=== PATIENT | male | born 1960 | race Caucasian/White ===

== ENCOUNTER → 2017-03-09 | Outpatient (CLI) | payer OTHER | LOC: FIMAGING 12:18 | PROVIDERS: ATTEND Family Medicine Sports Medicine | DX: M51.36 Other intervertebral disc degeneration, lumbar region (principal); M50.30 Other cervical disc degeneration, unspecified cervical region ==

== ENCOUNTER 2018-04-16 16:33 | Emergency (ER) | payer OTHER ==
[2018-04-16] MEDS ORDERED: NS 1,000 ML IV ONE (16:57)
--- NOTE | 2018-04-16 17:21 | EDPHY ---
H & P Time Seen by Provider: 04/16/18 16:40 HPI/ROS: HPI Ongoing fever. 58-year-old male by private vehicle. 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 Currently not on chemotherapy. He is not immunocompromised. He reports he has had ongoing fevers, low grade, for the last 4-5 months. He reports temperature up to 99 degrees F. He reports that he has been taking 2400 mg of ibuprofen daily for this with good control of his fever. He reports that today he developed a fever again up to 99 degrees. He took a total of 1600 mg of ibuprofen. He states that the fever persisted at 99.8 degrees. He also felt fatigued. This is what prompted him to come to the emergency department. Otherwise he denies any other symptoms. His general surgeon is Dr. Evans Dale. His oncologist is Dr. Mejía. He tells me they have been aware of these feet low-grade fevers as well. ROS: Constitutional: As above. Eyes: No discharge. No changes in vision. ENT: No sore throat. No nasal congestion or rhinorrhea. Respiratory: No cough. No shortness of breath. Cardiac: No chest pain, no palpitations. Gastrointestinal: No abdominal pain, no vomiting, no diarrhea. Genitourinary: No hematuria. No dysuria or increased frequency with urination. Musculoskeletal: No back pain. No neck pain. No myalgias or arthralgias. Skin: No rashes. Neurological: No headache. No focal weakness or altered sensation. Past medical history: Cholangiocarcinoma with metastasis. As above. Social history: Nonsmoker. Here by himself. No alcohol. Physical Exam: General Appearance: Alert, no distress. This patient is responding to questions appropriately and in full sentences. This patient appears well- hydrated and well-nourished. Eyes: Pupils equal and round no pallor or injection. No lid edema, erythema or injection. ENT, Mouth: Mucous membranes are moist. The pharyngeal tissues are unremarkable. No edema or swelling. No asymmetry suggestive of abscess. No erythema or exudates. Respiratory: There are no retractions, lungs are clear to auscultation with good air movement bilaterally. Cardiovascular: Regular rate and rhythm. No murmur. Gastrointestinal: Abdomen is soft and nontender, no masses, bowel sounds normal. No focal tenderness at McBurney's point. No Cherry sign. Neurological: Motor sensory function is grossly intact. Cranial nerves are normal. Gait is normal. Skin: Warm and dry, no rashes. Musculoskeletal: Neck is supple and nontender. Extremities are symmetrical. All joints range without pain or impingement. Psychiatric: No agitation. No depression. Database: EKG: EKG time is 4:57 p.m.; EKG shows a narrow complex normal sinus rhythm with a ventricular rate of 78. The MS, QRS, QT intervals are within normal limits. There are no ST-T wave changes indicative of ischemic or injury pattern. No evidence of right heart strain. Interpreted by me. Imaging: Chest x-ray PA and lateral; the cardiac mediastinal silhouette is unremarkable. Vague nodular pulmonary densities consistent with recent CT and metastasis. No evidence of infiltrate or pneumothorax. No acute cardiopulmonary disease process noted. Interpreted by me. Procedures: Emergency department course: Vital signs reviewed and are normal. His temperature is 36.6 degrees here. An IV was placed. He will be started on IV normal saline with 500 cc to 1 L to be given over the next 1-2 hours. Will obtain a fever workup including chest x-ray , urinalysis and blood cultures. 6:30 p.m., patient re-evaluated. Results of emergency department workup discussed with him. Blood culture results currently pending. Vital signs reviewed and are normal. He is not neutropenic. He has remained afebrile throughout his emergency department course. After discussion of his emergency department workup I discussed antibiotics. I feel at this time that antibiotics are not indicated. Plan will be to have him follow up with Dr. Mejía or his primary care physician on Thursday for re-evaluation and results of his blood cultures. He was given strict instructions to return to the emergency department over the weekend for any worsening of condition or other concerns. He feels comfortable with this plan. All of his questions were answered. He was discharged from the emergency department in good condition. Differential Diagnosis: The differential diagnosis on this patient includes but is not limited to viral syndrome, chronic inflammatory state with associated low-grade fever, bacteremia. No pneumonia, urinary tract infection, sepsis, cellulitis, septic joint, pharyngitis unlikely. This represents a partial list of diagnoses considered. These considerations are based on history, physical exam, past history, reassessment and diagnostic testing. Smoking Status: Never smoked Constitutional: Initial Vital Signs Temperature (C) 36.6 C 04/16/18 16:36 Heart Rate 86 04/16/18 16:36 Respiratory Rate 16 04/16/18 16:36 Blood Pressure 126/82 H 04/16/18 16:36 O2 Sat (%) 95 04/16/18 16:36 O2 Delivery Mode Room Air Allergies/Adverse Reactions: No Known Allergies Allergy (Verified 04/16/18 16:34) Home Medications: Medication Instructions Recorded Ibuprofen 04/07/18 Medical Decision Making - Data Points Laboratory Results: Laboratory Results 04/16/18 16:57 04/16/18 16:57 Microbiology Results: MICROBIOLOGY 04/16/18 17:20 Blood Blood Culture - Preliminary 04/16/18 16:57 Blood Blood Culture - Preliminary Medications Given: Discontinued Medications Sodium Chloride (Ns) 1,000 mls @ 0 mls/hr IV ONCE ONE; Wide Open PRN Reason: Protocol Stop: 04/16/18 16:58 Last Admin: 04/16/18 17:11 Dose: 1,000 mls Departure - Departure Disposition: Home, Routine, Self-Care Clinical Impression: Fever, History of cholangiocarcinoma Condition: Good Instructions: Fever in Adults (ED) Additional Instructions: Read and follow provided instructions. Follow-up with your primary care physician or Dr. Mejía on Thursday for re- evaluation as discussed. Her blood culture results should be available by this time. Take ibuprofen for fever as reviewed only as needed. Return to the emergency department for worsening symptoms, high fever, fatigue, headache, vomiting, cough or other serious concerns. Referrals: Clarke Du MD [Primary Care Provider] - As per Instructions Jesse Mejía MD [Medical Doctor] - As per Instructions
[2018-04-16 17:24] LABS: PLATELET COUNT 319 10^3/uL (150-400)
[2018-04-16 19:04] VITALS: BP 129/71
--- NOTE | 2018-04-16 22:58 | CPEKG ---
Test Reason : OPEN Blood Pressure : / mmHG Vent. Rate : 078 BPM Atrial Rate : 078 BPM P-R Int : 165 ms QRS Dur : 088 ms QT Int : 373 ms P-R-T Axes : 040 -22 034 degrees QTc Int : 425 ms Sinus rhythm Borderline left axis deviation Confirmed by Kelly Joseph ([id number]) on 04/16/2018 10:58:16 PM Referred By: Confirmed By:Kelly Joseph
== END 2018-04-16 19:03 | disposition home or self-care (01) ==
DX: R50.9 Fever, unspecified (principal); E86.9 Volume depletion, unspecified; Z85.09 Personal history of malignant neoplasm of other digestive organs

== ENCOUNTER 2018-04-29 19:45 | Inpatient (IN) | payer OTHER ==
[2018-04-29 20:38] LABS: PLATELET COUNT 240 10^3/uL (150-400)
[2018-04-29] MEDS ORDERED: NS 1,000 ML IV ONE ×3 (20:38→22:26)
--- NOTE | 2018-04-29 20:38 | EDPHY ---
H & P Stated Complaint: CHLOANGIOCARCINOMA, abd distention, "dehydrated" Time Seen by Provider: 04/29/18 20:11 - Personal History Current Tetanus/Diphtheria Vaccine: Yes Current Tetanus Diphtheria and Acellular Pertussis (TDAP): Yes - Medical/Surgical History Hx Asthma: No Hx Chronic Respiratory Disease: No Hx Diabetes: No Hx Cardiac Disease: No Hx Renal Disease: No Hx Cirrhosis: No Hx Alcoholism: No Hx HIV/AIDS: No Hx Splenectomy or Spleen Trauma: No Other PMH: LIVER BIOPSY 2018, STAGE 4 PANCREATIC CA, METS TO LIVER, LUNGS, LYMPHNODES- CHOLANGIOCARCINOMA - Social History Smoking Status: Never smoked Constitutional: Initial Vital Signs Temperature (C) 36.6 C 04/29/18 19:50 Heart Rate 76 04/29/18 19:50 Respiratory Rate 18 04/29/18 19:50 Blood Pressure 124/82 H 04/29/18 19:50 O2 Sat (%) 96 04/29/18 19:50 O2 Delivery Mode Room Air Allergies/Adverse Reactions: No Known Allergies Allergy (Verified 04/29/18 19:52) Home Medications: Medication Instructions Recorded Ibuprofen [Motrin (*)] 400 mg PO Q8H PRN 04/07/18 Medical Decision Making - Diagnostics Imaging: Discussed imaging studies w/ banquet server on call Radiologist ED Course/Re-evaluation: CHIEF COMPLAINT: Fever, dehydration. HISTORY OF PRESENT ILLNESS: This patient is a 58 year-old male with recent diagnosis of cholangiocarcinoma carcinoma. He was diagnosed in the past month and is followed by oncology here in [place] (Dr. Mejía) and in [place] at the [facility]. He has metastases to his lungs and lymph nodes. Today, he had a fever of 101 degrees. He complains of abdominal bloating. He has been unable to eat or drink including being unable to keep down any water. He noted his eyes appear jaundiced. Additionally, the color and consistency of his stools has changed and they have been soft and yellowish for several days. No chest pain, shortness of breath, numbness or paresthesias in his extremities, or other associated symptoms. REVIEW OF SYSTEMS: A comprehensive 10 system review of systems is otherwise negative aside from elements mentioned in the history of present illness and medical decision making. PHYSICAL EXAM: HR, BP, O2 Sat, RR. Temp noted General Appearance: Alert, well hydrated, appropriate, and non-toxic appearing. Head: Atraumatic without scalp tenderness or obvious injury Eyes: Scleral icterus. Pupils equal, round, reactive to light and accommodation , EOMI, no trauma, no injection. Ears: Clear bilaterally, no perforation, normal landmarks Nose: Atraumatic, no rhinorrhea, clear. Throat: There is no erythema or exudates, no lesions, normal tonsils, mucus membranes moist. Neck: Supple, 2+ carotid upstroke, nontender, no lymphadenopathy. Respiratory: No retractions, no distress, no wheezes, and no accessory muscle use. Lungs are clear to auscultation bilaterally. Cardiovascular: Regular rate and rhythm, no murmurs, rubs, or gallops. Bilateral carotid, radial, dorsalis pedis, and posterior tibial pulses intact. Good capillary refill all extremities. Gastrointestinal: Abdomen is distended. Soft, nontender, no masses, no rebound , no guarding, no peritoneal signs. Musculoskeletal: Normal active ROM of all extremities, atraumatic. Neurological: Alert, appropriate, and interactive. The patient has normal DTRs and non-focal cranial nerves, motor, sensory, and cerebellar exam. Skin: Jaundiced. No rashes, good turgor, no nodules on palpation. Past medical history: Stage IV pancreatic cancer with metastases to liver, lungs , lymph nodes. Past surgical history: Liver biopsy 2018. Family history: Noncontributory. Social history: Friend at bedside. Oncologist: Dr. Mejía. DIAGNOSTICS/PROCEDURES/CRITICAL CARE TIME: I spent a total of 30 minutes of critical care time including but not limited to obtaining history, performing a physical exam, ordering interventions and the bedside monitoring of those interventions, collecting and interpreting tests and discussion with consultants but not including time spent performing procedures. DIFFERENTIAL DIAGNOSIS: The differential diagnosis for the patient's fever included but was not limited to pneumonia, urinary tract infection, viral syndrome, meningitis, and sepsis. MEDICAL DECISION MAKIN58 y/o male with recent diagnosis of cholangiocarcinoma presents with fever, vomiting, abdominal distention, and stool changes. On exam, he appears jaundiced and has scleral icterus, abdomen is distended but nontender. Plan to administer 2L IV NS. Patient declines pain medication at this time. Reviewed laboratory studies. Alk phos elevated at 600. AST/ALT elevated. Suspect biliary obstruction, as with patient's clinical presentation. CT pending. UA positive for urobilinogen. WBC elevated at 10,000. 21:45 Spoke with hospitalist service. Plan to admit for worsening symptoms surrounding the patient's metastatic cholangiocarcinoma likely related to biliary obstruction. 21:[address] Mansfield, healthcare prof. banquet server on call healthcare prof to consult tomorrow morning. 21:[address] He, radiologist. CT shows evidence of biliary obstruction, worsening metastases, consistent with patient's clinical presentation. 22:[address] Reyes, oncologist. The patient is under the care of Dr. Mejía, oncologist. They are aware of the patient's admission and will consult as needed. 22:[address] Castillo, hospitalist. Plan to administer 3.375gm IV Zosyn. He will be admitted as above. An additional 1L IV NS was administered for dehydration relief. - Data Points Laboratory Results: Laboratory Results 04/29/18 20:30 04/29/18 20:30 Medications Given: Acetaminophen (Tylenol) 650 mg PO Q4HRS PRN PRN Reason: Pain, Mild/Fever, Can Take PO Stop: 10/26/18 22:25 Last Admin: 04/30/18 13:12 Dose: 650 mg Piperacillin/Tazobactam/Dextrose (Zosyn 3.375 Gm (Premix)) 50 mls @ 100 mls/hr IV Q6HRS FLAKO PRN Reason: Protocol Stop: 05/30/18 13:21 Last Admin: 04/30/18 14:05 Dose: 50 mls Discontinued Medications Sodium Chloride (Ns) 1,000 mls @ 0 mls/hr IV EDNOW ONE; Wide Open PRN Reason: Protocol Stop: 04/29/18 20:39 Last Admin: 04/29/18 20:39 Dose: 1,000 mls Sodium Chloride (Ns) 1,000 mls @ 0 mls/hr IV EDNOW ONE; Wide Open PRN Reason: Protocol Stop: 04/29/18 20:39 Last Admin: 04/29/18 20:40 Dose: 1,000 mls Sodium Chloride (Ns) 1,000 mls @ 0 mls/hr IV ONCE ONE PRN Reason: Wide Open Stop: 04/29/18 22:27 Last Admin: 04/29/18 22:52 Dose: 1,000 mls Piperacillin/Tazobactam/Dextrose (Zosyn 3.375 Gm (Premix)) 50 mls @ 100 mls/hr IV EDNOW ONE PRN Reason: Protocol Stop: 04/29/18 23:17 Last Admin: 04/29/18 23:26 Dose: 50 mls Departure - Departure Disposition: [facility] Inpatient Acute Clinical Impression: Cholangiocarcinoma, Common bile duct obstruction Condition: Serious Report Scribed for: Mihir Montez Report Scribed by: Lea Madrid Date of Report: 04/29/18 Time of Report: 23:26
[2018-04-29] MEDS ORDERED: IOPAMIDOL (ISOVUE-300) 100 ML BTL ONE (20:52)
[2018-04-29 20:57] LABS: INR 0.94 (0.83-1.16); PROTIME(PATIENT) 12.8 SEC (12.0-15.0)
[2018-04-29] MEDS ORDERED: ONDANSETRON DISINTEGRATING 4 MG TAB PO PRN (22:26)
[2018-04-29] MEDS ORDERED: PIPERACILLIN/TAZO 3.375 GM/DEX 50 ML IV ONE (22:48)
--- NOTE | 2018-04-29 23:43 | PDGENHP ---
History and Physical - Chief Complaint Abdominal pain - History of Present Illness 58 yo M w/ hx of metastatic cholangiocarcinoma presents with abdominal pain, jaundice, and fever. Patient was in usual state of health until today when he developed severe abdominal pain. His neighbor noticed his skin appeared yellowed and he also noted yellow stools. He noted a T of 101 at home. However, he tells me this is not new and he has been having fevers for 6 months. Per his report these have been attributed to his malignancy. He was diagnosed with malignancy in early March. Aside from this he denies other medical problems. Case discussed with ED physician Dr. Montez. Records reviewed in EMR. History Information - Allergies/Home Medication List Allergies/Adverse Reactions: No Known Allergies Allergy (Verified 04/29/18 19:52) Home Medications: Ibuprofen [Motrin (*)] 400 mg PO Q8H PRN 04/07/18 [Last Taken Unknown] I have personally reviewed and updated: family history, medical history - Past Medical History cancer (Metastatic cholangiocarcinoma) - Surgical History Reports: appendectomy Additional surgical history: Liver biopsy - Family History Positive for: cancer (Prostate CA) - Social History Smoking Status: Never smoked Review of Systems Review of Systems: ROS: 10pt was reviewed & negative except for what was stated in HPI & below Physical Exam Physical Exam: Temp Pulse Resp BP Pulse Ox 36.9 C 65 16 107/62 96 04/29/18 23:25 04/29/18 23:25 04/29/18 23:25 04/29/18 23:25 04/29/18 23:25 Constitutional: no apparent distress, appears nourished Eyes: PERRL, icteric sclera Ears, Nose, Mouth, Throat: moist mucous membranes, no oral mucosal ulcers Cardiovascular: regular rate and rhythym, no murmur, rub, or gallop Respiratory: no respiratory distress, clear to auscultation Gastrointestinal: normoactive bowel sounds, tenderness (RUQ), No guarding, No rebound, No distension Skin: warm, other (Jaundiced) Musculoskeletal: full muscle strength, no muscle tenderness Neurologic: AAOx3, CN II-XII Intact Psychiatric: interacting appropriately, not anxious Lab Data & Imaging Review 04/29/18 20:30 04/29/18 20:30 WBC 10.27 10^3/uL (3.80-9.50) H 04/29/18 20:30 RBC 4.23 10^6/uL (4.40-6.38) L 04/29/18 20:30 Hgb 12.7 g/dL (13.7-17.5) L 04/29/18 20:30 Hct 37.4 % (40.0-51.0) L 04/29/18 20:30 MCV 88.4 fL (81.5-99.8) 04/29/18 20:30 MCH 30.0 pg (27.9-34.1) 04/29/18 20: MCHC 34.0 g/dL (32.4-36.7) 04/29/18 20:30 RDW 15.1 % (11.5-15.2) 04/29/18 20:30 Plt Count 240 10^3/uL (150-400) 04/29/18 20:30 MPV 11.2 fL (8.7-11.7) 04/29/18 20:30 Neut % (Auto) 77.0 % (39.3-74.2) H 04/29/18 20:30 Lymph % (Auto) 9.3 % (15.0-45.0) L 04/29/18 20:30 Morrill % (Auto) 12.3 % (4.5-13.0) 04/29/18 20:30 Eos % (Auto) 0.6 % (0.6-7.6) 04/29/18 20:30 Baso % (Auto) 0.4 % (0.3-1.7) 04/29/18 20:30 Nucleat RBC Rel Count 0.0 % (0.0-0.2) 04/29/18 20:30 Absolute Neuts (auto) 7.92 10^3/uL (1.70-6.50) H 04/29/18 20:30 Absolute Lymphs (auto) 0.95 10^3/uL (1.00-3.00) L 04/29/18 20:30 Absolute Monos (auto) 1.26 10^3/uL (0.30-0.80) H 04/29/18 20:30 Absolute Eos (auto) 0.06 10^3/uL (0.03-0.40) 04/29/18 20:30 Absolute Basos (auto) 0.04 10^3/uL (0.02-0.10) 04/29/18 20:30 Absolute Nucleated RBC 0.00 10^3/uL (0-0.01) 04/29/18 20:30 Immature Gran % 0.4 % (0.0-1.1) 04/29/18 20:30 Immature Gran # 0.04 10^3/uL (0.00-0.10) 04/29/18 20:30 PT 12.8 SEC (12.0-15.0) 04/29/18 20:30 INR 0.94 (0.83-1.16) 04/29/18 20:30 APTT 28.1 SEC (23.0-38.0) 04/29/18 20:30 VBG Lactic Acid 0.7 mmol/L (0.7-2.1) 04/29/18 21:34 Sodium 136 mEq/L (135-145) 04/29/18 20:30 Potassium 3.8 mEq/L (3.3-5.0) 04/29/18 20:30 Chloride 103 mEq/L (97-110) 04/29/18 20:30 Carbon Dioxide 23 mEq/l (22-31) 04/29/18 20:30 Anion Gap 10 mEq/L (8-16) 04/29/18 20:30 BUN 9 mg/dL (7-23) 04/29/18 20:30 Creatinine 0.6 mg/dL (0.7-1.3) L 04/29/18 20:30 Estimated GFR > 60 04/29/18 20:30 Glucose 99 mg/dL (70-100) 04/29/18 20:30 Calcium 8.4 mg/dL (8.5-10.4) L 04/29/18 20:30 Total Bilirubin 4.2 mg/dL (0.1-1.4) H 04/29/18 20:30 Conjugated Bilirubin 3.2 mg/dL (0.0-0.5) H 04/29/18 20:30 Unconjugated Bilirubin 1.0 mg/dL (0.0-1.1) 04/29/18 20:30 AST 85 IU/L (17-59) H 04/29/18 20:30 ALT 150 IU/L (21-72) H 04/29/18 20:30 Alkaline Phosphatase 599 IU/L (38-126) H 04/29/18 20:30 Total Protein 6.3 g/dL (6.3-8.2) 04/29/18 20:30 Albumin 3.2 g/dL (3.5-5.0) L 04/29/18 20:30 Lipase 226 IU/L (23-300) 04/29/18 20:30 Urine Color JAYNE 04/29/18 22:12 Urine Appearance CLEAR 04/29/18 22:12 Urine pH 6.0 (5.0-7.5) 04/29/18 22:12 Ur Specific Ralston 1.025 (1.002-1.030) 04/29/18 22:12 Urine Protein NEGATIVE (NEGATIVE) 04/29/18 22:12 Urine Ketones NEGATIVE (NEGATIVE) 04/29/18 22:12 Urine Blood NEGATIVE (NEGATIVE) 04/29/18 22:12 Urine Nitrate NEGATIVE (NEGATIVE) 04/29/18 22:12 Urine Bilirubin NEGATIVE (NEGATIVE) 04/29/18 22:12 Urine Urobilinogen 2.0 EU (0.2-1.0) H 04/29/18 22:12 Ur Leukocyte Esterase NEGATIVE (NEGATIVE) 04/29/18 22:12 Urine RBC 1-3 /hpf (0-3) 04/29/18 22:12 Urine WBC 10-15 /hpf (0-3) H 04/29/18 22:12 Ur Epithelial Cells NONE SEEN /lpf (NONE-1+) 04/29/18 22:12 Urine Glucose NEGATIVE (NEGATIVE) 04/29/18 22:12 Imaging Review: Imaging Impressions Abdomen CT 04/29/18 20:32 Impression: 1. Slight interval worsening of hepatic metastases, with increased now moderate to severe left intrahepatic biliary dilatation. 2. Increased size of multiple pulmonary metastases. 3. Grossly stable pancreatic head mass. 4. Grossly stable eric metastases. 5. Additional findings as above. Findings discussed with Mihir Montez M.D., on April 29, 2018 at 2149. E:amm Assessment & Plan Assessment: 58 yo M w/ metastatic cholangiocarcinoma presents with bile duct obstruction 2/ 2 malignancy. Plan: 1. Acute biliary obstruction - 2/2 progression of malignancy; CT reveals slight interval worsening of hepatic metastases, with increased now moderate to severe left intrahepatic biliary dilatation. Tbili 4.2. Despite history of fevers, I doubt ongoing cholangitis noting overall clinical stability and the fact that fevers have been occurring for the last 6 months. - S/p Zosyn x1, hold further antibiotics for now, low threshold to restart - GI consulted, NPO @ [facility] for likely stent placement - Monitor CMP 2. Metastatic cholangiocarcinoma - With evidence of disease in liver, pancreas, lymph nodes, and lungs. Followed by Dr. Sanchez. Diet - NPO Code - Full Ppx - SCDs Dispo - Admit under observation status
[2018-04-30 06:09] LABS: PLATELET COUNT 175 10^3/uL (150-400)
--- NOTE | 2018-04-30 11:26 | GCON ---
DATE OF CONSULTATION: 04/30/2018 CHIEF COMPLAINT: Abdominal pain. HISTORY OF PRESENT ILLNESS: I am asked to see this patient in consultation by Dr. Frank for a [facility] complaint of abdominal pain. Patient is an unfortunate, 58 year old with recent diagnosis of meta static cholangiocarcinoma, originally diagnosed in March with liver biopsy, who developed worsening abdominal pain last night associated with a fever. He has been noting intermittent abdominal pain th at he feels more as a bloated discomfort when he eats, but became more acute last night. He has had no nausea, no vomiting. Denies diarrhea, constipation, or blood in stools, but for the last 2 days, has noted that his stools have turned verduzco, and has noted more jaundice to his eyes, and did develop a fever as well last night. This morning, however, his pain is much better. He has had history of a burst appendix, but no surgery on his abdomen. He has no GERD or dysphagia. ALLERGIES: No known allergies. MEDICATIONS ON ADMISSION: Ibuprofen and Zofran. PAST MEDICAL HISTORY: Noted for new diagnosis of metastatic cholangiocarcinoma. SOCIAL HISTORY: Denies alcohol use. Never smoked. FAMILY HISTORY: Positive for prostate cancer. REVIEW OF SYSTEMS: I performed a complete review of systems which is negative except for the pertine nt positives and negatives noted above in the HPI. PHYSICAL EXAM: VITAL SIGNS: Temp now is 36.8, BP 101/66, pulse 69. CONSTITUTIONAL: Patient is giorgio rt and oriented. EYES: Scleral icterus. HEENT: No oral lesions. CARDIOVASCULAR: Regular rhythm. CHEST: Clear to auscultation. ABDOMEN: Soft, nontender. No hepatosplenomegaly. NEUROLOGICAL: Nonfocal. SKIN: No lesions. LABORATORY DATA: Shows alkaline phosphatase of 473, total bilirubin of 5.0, AST 66, ALT 117. White count 7, hematocrit 34.1, platelets 178. Coag is 12.8 with an INR 0.94. A CT scan of the abdomen shows a slight increase in and worsening hepatic metastasis with now moderate to severe left intrahepatic biliary dilation. Increase in pulmonary metastasis. Stable pancreatic head mass. ASSESSMENT: Patient with metastatic cholangiocarcinoma now with evidence of biliary obstruction, and given fever and pain, concern for cholangitis, however, patient's white count is not elevated, and h is fever is now in improved. However, the patient will need biliary decompression, and have discusse d this with the therapeutic endoscopist. PLAN: We will plan for ERCP with biliary stent today. Recommend to keep n.p.o. and IV antibiotics. Thank you for this consult. /[id number]/MODL
[2018-04-30] MEDS: ACETAMINOPHEN 325 MG TAB PO PRN ×3 (13:12→22:05)
--- NOTE | 2018-04-30 13:22 | HOSPPROG ---
Hospitalist Progress Note Assessment/Plan: 58 yo M w/ metastatic cholangiocarcinoma presents with bile duct obstruction 2/ 2 malignancy. Plan: 1. Acute biliary obstruction - 2/2 progression of malignancy; CT reveals slight interval worsening of hepatic metastases, with increased now moderate to severe left intrahepatic biliary dilatation. Tbili 4.2. Despite history of fevers, I doubt ongoing cholangitis noting overall clinical stability and the fact that fevers have been occurring for the last 6 months. - S/p Zosyn x1, will continue for now - GI consulted, plan for ERCP today with stent placement - Monitor CMP 2. Metastatic cholangiocarcinoma - With evidence of disease in liver, pancreas, lymph nodes, and lungs. Followed by Dr. Sanchez. Diet - NPO Code - Full Ppx - SCDs Dispo - Pending clinical course Subjective: Patient reports no pain this morning. Objective: Vital Signs Temp Pulse Resp BP Pulse Ox 36.7 C 81 18 102/69 94 04/30/18 07:25 04/30/18 07:25 04/30/18 07:25 04/30/18 07:25 04/30/18 07:25 Laboratory Results 04/30/18 05:26 04/30/18 05:26 04/29/18 04/30/18 05/01/18 05:59 05:59 05:59 Intake Total 2300 Output Total 1200 Balance 1100 PT 12.8 SEC (12.0-15.0) 04/29/18 20:30 INR 0.94 (0.83-1.16) 04/29/18 20:30 - Physical Exam Constitutional: no apparent distress Eyes: PERRL Ears, Nose, Mouth, Throat: moist mucous membranes Cardiovascular: regular rate and rhythym Respiratory: no respiratory distress Gastrointestinal: soft, non-tender abdomen Skin: no rashes or abrasions Musculoskeletal: full muscle strength Neurologic: AAOx3 Psychiatric: interacting appropriately ICD10 Worksheet Patient Problems: Problems Problem Status Onset Cholangiocarcinoma Acute Common bile duct obstruction Acute
[2018-04-30] MEDS: PIPERACILLIN/TAZO 3.375 GM/DEX 50 ML IV SCH ×2 (14:05→17:43)
[2018-04-30] MEDS: NS 1,000 ML IV SCH ×2 (15:00→19:20)
--- NOTE | 2018-04-30 17:08 | ASMTCMCOM ---
CM Note CM Note Notes: Pt admitted with cholangiocarcinoma. Pt to get stent placed tomorrow. Pt has already decided to not pursue treatment. Had long discussion with pt about this and he is clear and at peace with this decision. Spoke with pt about having palliative care at [place]. Pt agreed. Referral sent to [facility]. Plan: Palliative care with [facility] at [place]. Date Signed: 04/30/2018 04:49 PM Electronically Signed By:Joanna Camacho LCSW
--- NOTE | 2018-04-30 17:35 | PDMN ---
Medical Necessity Medical necessity: Pt meets inpt criteria per MD order and MCG M-555, Gallbladder or Bile Duct Inflammation or Stone, A-2 days. Est LOS>2MN for management of common biliary duct obstruction in pt w/metastatic cholangiocarcinoma requiring intervention of ERCP w/biliary stent. Ongoing med nec inpt monitoring/treatment for above condition.
--- NOTE | 2018-04-30 19:24 | GCON ---
ONCOLOGY CONSULTATION REASON FOR CONSULTATION: Cholangiocarcinoma, hyperbilirubinemia. HPI: The patient is a very pleasant, 58-year-old gentleman previously in excellent health. He was di agnosed in March with cholangiocarcinoma in the setting of low-grade fever for about 5 months. Event ually, abnormal liver function tests were noted, and an abdominal ultrasound demonstrated a pancreati c mass in the pancreatic head and likely hepatic metastases. CT scan (04/01/2018) demonstrated a 6.2 x 3.8 cm tumor at the head of the pancreas abutting the main portal vein and a 2.4 cm lymph node in t he shilpa hepatis. An 11 cm mass was present in the right lobe of the liver with multiple additional h epatic metastases. Liver biopsy (04/08/2018) demonstrated metastatic poorly-differentiated carcinoma (pankeratin CK7 positive with some SRIKANTH and p53 positivity) felt compatible with pancreatic primary. Dario mcgovern had a consultation with Dr. Salguero at the [facility], and the opinion was this represented cho langiocarcinoma radiographically. In consultation with Dr. Mejía, recommended gemcitabine/cisplatin . Usama has discussed that on at least [address] Mejía, but ultimately states today that he has decided to pursue no chemotherapy. He feels very comfortable with that. He presented yesterday with higher fever than typical for him, 101. He had no associated chills. He d id have associated abdominal pain, however. His abdominal pain has improved since then, but recurs wi th eating. He has also noticed increased scleral icterus. LABORATORY STUDIES: Last night on admission were remarkable for total bilirubin 4.2 (0.6 04/16/2018) , direct 3.2, AST 85, ALT 150, alkaline phosphatase 599 (ranging from 369-480 over the last month). A bdominal CT on admission demonstrated moderate to severe left intrahepatic biliary dilation with slig ht interval worsening of hepatic metastases and multiple pulmonary metastases in comparison with 03/24. GI has been consulted regarding biliary decompression. PAST MEDICAL HISTORY: Essentially unremarkable. SOCIAL HISTORY: He is . 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 He is single. His son is a freshman at . FAMILY HISTORY: He has a 21-year-old daughter and 18-year-old son. Family history of prostate cancer . REVIEW OF SYSTEMS: CONSTITUTIONAL: Per HPI. GI: Per HPI. RESPIRATORY: No dyspnea, pleurisy, cough. M USCULOSKELETAL: No new bony complaints. : No dysuria, hematuria. NEUROLOGIC: No new symptoms. PSYCH IATRIC: He denies anxiety or depression. PHYSICAL EXAM: VITAL SIGNS: Blood pressure 102/69, pulse 81, respirations 18, 94% on room air, afebr ile including on admission. GENERAL: Very pleasant gentleman in no acute distress. HEENT: Scleral ict erus. LUNGS: Clear to auscultation bilaterally. CARDIOVASCULAR: No pretibial edema. ABDOMEN: Slightly distended, soft, and nontender. MUSCULOSKELETAL: No tenderness over the spine. NEUROLOGIC: Grossly n onfocal. LABORATORY DATA: On admission, WBC 10.3 (77% neutrophils), hemoglobin 12.7, platelets 240,000. Creat inine 0.6. LFTs per HPI. RADIOLOGIC STUDIES: CT per HPI. IMPRESSION: 1. Metastatic cholangiocarcinoma with hepatic and pulmonary metastases. 2. Biliary obstruction. PLAN: GI has been consulted regarding endoscopic biliary decompression. If a distal obstruction is n ot found, he may need percutaneous drainage. He feels most comfortable with not pursuing chemotherapy given the prognosis with and without chemotherapy and its toxicities. He plans to see Dr. Mejía ne xt week to discuss this. In the meantime, he is comfortable with proceeding with present therapy. /[id number]/MODL
[2018-05-01] MEDS: PIPERACILLIN/TAZO 3.375 GM/DEX 50 ML IV SCH ×4 (00:50→18:30)
[2018-05-01] MEDS: NS 1,000 ML IV SCH (01:56)
[2018-05-01] MEDS: ACETAMINOPHEN 325 MG TAB PO PRN ×2 (03:16→20:47)
[2018-05-01] MEDS ORDERED: GLUCAGON HCL 1 MG VIAL ONE (09:18)
[2018-05-01] MEDS ORDERED: IOTHALAMATE MEG (CONRAY) 50 ML VIAL IV ONE (09:19)
[2018-05-01] MEDS ORDERED: LR 1,000 ML IV ONE (09:52)
[2018-05-01] MEDS ORDERED: MIDAZOLAM 2 MG/2 ML VIAL IVP ONE (09:53)
--- NOTE | 2018-05-01 09:53 | PDANEPAE ---
ANE History of Present Illness ERCP for metastatic cholangiocarcinoma with biliary obstruction ANE Past Medical History - Cardiovascular History Hx Hypertension: No Hx Arrhythmias: No Hx Chest Pain: No Hx Coronary Artery / Peripheral Vascular Disease: No Hx CHF / Valvular Disease: No Hx Palpitations: No - Pulmonary History Hx COPD: No Hx Asthma/Reactive Airway Disease: No Hx Recent Upper Respiratory Infection: No Hx Oxygen in Use at Home: No Hx Sleep Apnea: No - Neurologic History Hx Cerebrovascular Accident: No Hx Seizures: No Hx Dementia: No - Endocrine History Hx Diabetes: No - Renal History Hx Renal Disorders: No - Liver History Hx Hepatic Disorders: Yes - Neurological & Psychiatric Hx Hx Neurological and Psychiatric Disorders: No - Cancer History Hx Cancer: No - Congenital Disorder History Hx Congenital Disorders: No - GI History Hx Gastrointestinal Disorders: No Gastrointestinal History Comment: metastatic cholangiocarcinoma with biliary obstruction - Chronic Pain History Chronic Pain: No - Surgical History Prior Surgeries: APPY ANE Review of Systems Review of systems is: negative Review of Systems: - Exercise capacity Exercise capacity: >=4 METS ANE Patient History - Allergies Allergies/Adverse Reactions: No Known Allergies Allergy (Verified 04/29/18 19:52) - Home Medications Home medications: home medication list seen and reviewed Home Medications: Ibuprofen [Motrin (*)] 400 mg PO Q8H PRN 04/07/18 [Last Taken Unknown] - NPO status NPO Status: no food or drink >8 hours - Anes Hx Anes Hx: no prior problems - Smoking Hx Smoking Status: Never smoked - Family Anes Hx Family Anes Hx: none ANE Labs/Vital Signs - Labs Result Diagrams: 05/01/18 04:24 05/01/18 04:24 - Vital Signs Vital Signs: reviewed preoperatively; see RN documention for details Blood Pressure: 109/72 Heart Rate: 67 Respiratory Rate: 20 O2 Sat (%): 95 Height: 180.34 cm Weight: 83.6 kg ANE Physical Exam - Airway Neck exam: FROM Mallampati Score: Class 1 Mouth exam: normal dental/mouth exam - Pulmonary Pulmonary: no respiratory distress - Cardiovascular Cardiovascular: regular rate and rhythym - ASA Status ASA Status: III ANE Anesthesia Plan Anesthesia Plan: general endotracheal anesthesia
[2018-05-01] MEDS ORDERED: fentaNYL 100 MCG/2 ML INJ ONE ×2 (09:55→12:00)
[2018-05-01] MEDS ORDERED: LIDOCAINE 2% 100 MG/5 ML SYR ONE (09:55)
[2018-05-01] MEDS ORDERED: MIDAZOLAM 2 MG/2 ML VIAL ONE (09:55)
[2018-05-01] MEDS ORDERED: DEXAMETHASONE 4 MG/ML VIAL ONE (09:55)
[2018-05-01] MEDS ORDERED: ONDANSETRON 4 MG/2 ML VIAL ONE ×2 (09:55→11:08)
[2018-05-01] MEDS ORDERED: PROPOFOL 200 MG/20 ML VIAL ONE (09:56)
[2018-05-01] MEDS ORDERED: INDOMETHACIN 50 MG SUPP PR ONE (10:10)
--- NOTE | 2018-05-01 10:11 | HOSPPROG ---
Hospitalist Progress Note Assessment/Plan: 58 yo M w/ metastatic cholangiocarcinoma presents with bile duct obstruction 2/ 2 malignancy. Plan: 1. Acute biliary obstruction - 2/2 progression of malignancy; CT reveals slight interval worsening of hepatic metastases, with increased now moderate to severe left intrahepatic biliary dilatation. Tbili 4.2. Despite history of fevers, I doubt ongoing cholangitis noting overall clinical stability and the fact that fevers have been occurring for the last 6 months. - S/p Zosyn x1, will continue for now pending culture data - GI consulted, plan for ERCP today with stent placement - Monitor CMP, AST/ALT trending down however T Bili/Conjugated Bili increasing 2. Metastatic cholangiocarcinoma - With evidence of disease in liver, pancreas, lymph nodes, and lungs. Followed by Dr. Sanchez. Diet - NPO Code - Full Ppx - SCDs Dispo - Pending clinical course Subjective: Patient reports mild abdominal pain this AM. He reports that he slept well. Objective: Vital Signs Temp Pulse Resp BP Pulse Ox 35 C L 67 20 109/72 95 05/01/18 09:49 05/01/18 09:53 05/01/18 09:53 05/01/18 09:53 05/01/18 09:53 Laboratory Results 05/01/18 04:24 05/01/18 04:24 04/30/18 05/01/18 05/02/18 05:59 05:59 05:59 Intake Total 1697 2058 Output Total 1850 800 Balance -153 1258 PT 12.8 SEC (12.0-15.0) 04/29/18 20:30 INR 0.94 (0.83-1.16) 04/29/18 20:30 - Physical Exam Constitutional: no apparent distress Eyes: PERRL Ears, Nose, Mouth, Throat: moist mucous membranes Cardiovascular: regular rate and rhythym Respiratory: no respiratory distress, no rales or rhonchi Gastrointestinal: normoactive bowel sounds, tenderness (mild TTP in RUQ) Genitourinary: no bladder tenderness, No mann in urethra Skin: warm Musculoskeletal: no muscle tenderness Neurologic: AAOx3 Psychiatric: interacting appropriately Lymph, Heme, Immunologic: No ecchymoses, No petechiae ICD10 Worksheet Patient Problems: Problems Problem Status Onset Cholangiocarcinoma Acute Common bile duct obstruction Acute
[2018-05-01] MEDS ORDERED: NALOXONE HCL 0.4 MG/ML INJ IVP PRN (10:28)
[2018-05-01] MEDS ORDERED: oxyCODONE IR 5 MG TAB PO PRN (10:28)
[2018-05-01] MEDS ORDERED: HYDROmorphONE/DILAUDID 1 MG/ML INJ IVP PRN (10:28)
[2018-05-01] MEDS ORDERED: MEPERIDINE 25 MG/0.5 ML AMP IVP PRN (10:28)
[2018-05-01] MEDS ORDERED: fentaNYL 100 MCG/2 ML INJ IVP PRN (10:28)
[2018-05-01] MEDS ORDERED: DEXAMETHASONE 4 MG/ML VIAL IVP PRN (10:28)
[2018-05-01] MEDS ORDERED: HYDROCODONE/APAP 5/325 TAB PO PRN (10:28)
[2018-05-01] MEDS ORDERED: ONDANSETRON 4 MG/2 ML VIAL IVP PRN (10:28)
--- NOTE | 2018-05-01 10:33 | POSTANESTH ---
Post Anesthetic Evaluation Cardiovascular Status: Normal, Stable, Similar to Pre-Op Cond Respiratory Status: Normal, Stable, Similar to Pre-op Cond. Level of Consciousness/Mental Status: Can Participate in Eval, Mildly Sleepy, Arousable Pain Control: Adequate, Prn Tx Ordered Nausea/Vomiting Control: Adequate, Prn Tx Ordered Complications Possibly Related to Anesthesia: None Noted
[2018-05-01] MEDS ORDERED: SUGAMMADEX SODIUM 200 MG/2 ML VIAL IVP ONE (10:49)
--- NOTE | 2018-05-01 11:13 | GIREPORT ---
[facility] - Endoscopy Department Patient Name: Usama Spaulding Procedure Date: 05/01/2018 9:02 AM Patient Type: Inpatient Attending MD/ ER Physician: Phong Reyes MD Procedure: ERCP Indications: Cholangiocarcinoma, with worsening bile duct obstruction. Else, please see yesterday's G.I. consult note. Providers: Phong Reyes MD, [facility] Referring MD: Jesse Mejía MD; [facility] Hospitalist service Medicines: Indomethacin 100 mg HI; else, please see the Anesthesia note for documentation of the administered medications Complications: No immediate complications. Description of Procedure: After obtaining informed consent, the scope was passed under direct vis ion. Throughout the procedure, the patient's blood pressure, pulse, and oxyg en saturations were monitored continuously. The Duodenalscope was introduc ed through the mouth, and advanced to the duodenum and used to cannulate t he bile duct. The ERCP was accomplished without difficulty. The patient tolerated the procedure well. Findings: Normal stomach, duodenum, ampulla. The bile duct was deeply cannulated. Contrast was injected. A 2 cm tigh t malignant stricture was found, just below the bifuraction (Klatskin izaiah or), with moderate intrahepatic ductal dilation above. A 8.5 Fr x 12 cm long plastic biliary stent was placed across this stricture, with several cm of stent above. Estimated Blood Loss: none. Post Op Diagnosis: Klatskin tumor, with obstruction. Now, decompressed. Recommendation: - feed - buffcap - ok to d/c pipracillin tomorrow (as per hospitalist) - would recommend occasional LFTs, to make sure they improve or stabili ze (with his large hepatic tumor burden, suspect will always be somewhat elevated) - the pt. is leaning towards no chemotherapy, etc. If that is the case (i.e., comfort, palliative care), then no stent exchange needed in thre e months. Otherwise, if undergoing full treatment, please rerefer him to us in about three months, for stent exchange (either with another plastic asim iary stent or with metal). I will sign off; please call if we can be of further help [phone]). Thank you for allowing me to help in the management of this patient. Attending Participation: I personally performed the entire procedure. Amy Darling MD Phong Reyes MD 05/01/2018 11:12:42 AM This report has been signed electronicallyPeter MD Amy Number of Addenda: 0 Note Initiated On: 05/01/2018 9:02 AM [email or web address]
[2018-05-01] MEDS ORDERED: PROMETHAZINE HCL 25 MG/ML INJ ONE (11:28)
[2018-05-01] MEDS: PROMETHAZINE HCL 25 MG/ML INJ IVP PRN ×4 (11:32→20:48)
[2018-05-01] MEDS: HYDROmorphONE/DILAUDID 1 MG/ML INJ IVP PRN ×2 (13:13→17:13)
[2018-05-01] MEDS: ONDANSETRON 4 MG/2 ML VIAL IVP PRN ×2 (16:27→19:55)
[2018-05-01] MEDS: oxyCODONE IR 5 MG TAB PO PRN (19:50)
[2018-05-02] MEDS: PIPERACILLIN/TAZO 3.375 GM/DEX 50 ML IV SCH ×2 (00:26→05:04)
[2018-05-02] MEDS: PROMETHAZINE HCL 25 MG/ML INJ IVP PRN ×3 (02:31→20:19)
[2018-05-02] MEDS: ACETAMINOPHEN 325 MG TAB PO PRN ×4 (02:31→20:11)
[2018-05-02] MEDS: HYDROmorphONE/DILAUDID 1 MG/ML INJ IVP PRN (03:55)
--- NOTE | 2018-05-02 10:21 | SOAPPROG ---
[facility]AL[facility] Progress Note Assessment/Plan: Assessment:Patient is a 58 year old male with metastatic cholangiocarcinoma ( Klatskin tumor) admitted for biliary obstruction. He is status post ERCP with stenting on 05/01/2018. His bilirubin is trending down. He feels poorly however with some epigastric discomfort and nausea somewhat concerning for post ERCP pancreatitis. Discussed again with patient the idea of treatment. He is adamant about no therapy and with dignity. Plan: -Follow-up lipase -Will get him followed up with Dr. Mejía as an outpatient -Oncology will sign off, please call with questions or concerns Grayson Rodgers [phone] 05/02/18 10:17 05/02/18 10:24 Subjective: Patient had his ERCP yesterday, he reports feeling poorly with epigastric discomfort, and nausea with meals. He denies fevers, chills or sweats. No other symptoms. Objective: Vital Signs Temp Pulse Resp BP Pulse Ox 36.5 C 70 18 115/73 93 05/02/18 07:49 05/02/18 07:49 05/02/18 07:49 05/02/18 07:49 05/02/18 07:49 Laboratory Results 05/01/18 04:24 05/02/18 04:10 05/01/18 05/02/18 05/03/18 05:59 05:59 05:59 Intake Total 1697 3608 Output Total 1850 800 700 Balance -153 2808 -700 PT 12.8 SEC (12.0-15.0) 04/29/18 20:30 INR 0.94 (0.83-1.16) 04/29/18 20:30 Physical Exam - Physical Exam General Appearance: alert, mild distress EENT: PERRL/EOMI, scleral icterus (R), scleral icterus (L), No pharyngeal erythema, No tonsillar exudate Neck: non-tender, supple Respiratory: crackles (left base), No rales, No rhonchi Cardiac/Chest: normal peripheral pulses, regular rate, rhythm, edema, No JVD Abdomen: distended, other (palpable RUQ mass), No non-tender, No guarding, No rebound Male Genitalia: deferred Rectal: deferred Skin: jaundice Lymphatic: no adenopathy Extremities: normal range of motion Neuro/Psych: no motor/sensory deficits, alert, normal mood/affect, No abnormal structural engineer II-XII ICD10 Worksheet Patient Problems: Problems Problem Status Onset Cholangiocarcinoma Acute Common bile duct obstruction Acute
[2018-05-02] MEDS ORDERED: HYDROmorphone HCL 0.5 MG/0.5 ML SYR IVP PRN ×2 (11:00→13:27)
--- NOTE | 2018-05-02 11:17 | HOSPPROG ---
Hospitalist Progress Note Assessment/Plan: 58 yo M w/ metastatic cholangiocarcinoma presents with bile duct obstruction 2/ 2 malignancy. Plan: 1. Acute biliary obstruction - 2/2 progression of malignancy; CT reveals slight interval worsening of hepatic metastases, with increased now moderate to severe left intrahepatic biliary dilatation. - S/p Zosyn x1, will continue for now pending culture data - GI consulted, s/p ERCP with stent placement on 05/01 - Monitor CMP, LFTs are trending down s/p ERCP - Patient with increase in n/v, abdominal pain this AM, will check lipase to r/ o pancreatitis s/p ERCP, discussed new symptoms with Dr. Reyes, GI - Will treat symptoms with nausea and pain medications PRN 2. Metastatic cholangiocarcinoma - With evidence of disease in liver, pancreas, lymph nodes, and lungs. Followed by Dr. Sanchez. Diet - Clear, advance as tolerated Code - Full Ppx - SCDs Dispo - Pending clinical course, if symptoms improved by this afternoon will d/ c Subjective: Patient with new onset nausea and abdominal pain s/p ERCP. He is unable to take PO due to nausea. Objective: Vital Signs Temp Pulse Resp BP Pulse Ox 36.5 C 70 18 115/73 93 05/02/18 07:49 05/02/18 07:49 05/02/18 07:49 05/02/18 07:49 05/02/18 07:49 Laboratory Results 05/01/18 04:24 05/02/18 04:10 05/01/18 05/02/18 05/03/18 05:59 05:59 05:59 Intake Total 1697 3608 Output Total 1850 800 700 Balance -153 2808 -700 PT 12.8 SEC (12.0-15.0) 04/29/18 20:30 INR 0.94 (0.83-1.16) 04/29/18 20:30 - Physical Exam Constitutional: no apparent distress Eyes: PERRL Ears, Nose, Mouth, Throat: moist mucous membranes Cardiovascular: regular rate and rhythym Respiratory: no respiratory distress Gastrointestinal: tenderness, No guarding, No rebound Genitourinary: No mann in urethra Skin: warm Musculoskeletal: no muscle tenderness Neurologic: AAOx3 Psychiatric: interacting appropriately ICD10 Worksheet Patient Problems: Problems Problem Status Onset Cholangiocarcinoma Acute Common bile duct obstruction Acute
[2018-05-02] MEDS: oxyCODONE IR 5 MG TAB PO PRN ×2 (11:49→16:08)
[2018-05-02] MEDS: NS 1,000 ML IV SCH ×3 (13:50→22:32)
[2018-05-02] MEDS: ONDANSETRON 4 MG/2 ML VIAL IVP PRN (14:47)
[2018-05-02] MEDS ORDERED: NS 500 ML IV ONE (15:00)
--- NOTE | 2018-05-02 17:31 | SOAPPROG ---
SOAP Progress Note Assessment/Plan: Assessment/Plan: Post-ERCP pancreatitis. Hopefully, should resolve quickly. - agree with present mgmt - if clinically better tomorrow, can start diet 05/02/18 17:29 Subjective: cc: epigastric pain Epigastric pain, nausea, inability to take po, since his procedure yesterday. No rigors, sweats. Objective: Vital Signs Temp Pulse Resp BP Pulse Ox 36.8 C 75 16 108/65 92 05/02/18 15:29 05/02/18 15:29 05/02/18 15:29 05/02/18 15:29 05/02/18 15:29 Laboratory Results 05/01/18 04:24 05/02/18 04:10 05/01/18 05/02/18 05/03/18 05:59 05:59 05:59 Intake Total 1697 3608 Output Total 1850 800 700 Balance -153 2808 -700 PT 12.8 SEC (12.0-15.0) 04/29/18 20:30 INR 0.94 (0.83-1.16) 04/29/18 20:30 LFTs better Physical Exam - Physical Exam General Appearance: WD/WN, alert, no apparent distress EENT: PERRL/EOMI, normal ENT inspection, pharynx normal, TMs normal Neck: non-tender, full range of motion, supple, normal inspection Respiratory: chest non-tender, lungs clear, normal breath sounds Cardiac/Chest: normal peripheral pulses, regular rate, rhythm Peripheral Pulses: 2+: carotid (R), carotid (L), femoral (R), femoral (L), dorsalis-pedis (R), dorsalis-pedis (L) Abdomen: normal bowel sounds, soft, No non-tender Male Genitalia: deferred Rectal: deferred Back: Normal inspection Skin: normal color, warm/dry Lymphatic: no adenopathy Extremities: normal range of motion, non-tender, normal inspection, normal capillary refill Neuro/Psych: no motor/sensory deficits, alert, normal mood/affect, oriented x 3 ICD10 Worksheet Patient Problems: Problems Problem Status Onset Cholangiocarcinoma Acute Common bile duct obstruction Acute
[2018-05-03] MEDS: ONDANSETRON 4 MG/2 ML VIAL IVP PRN (00:42)
[2018-05-03] MEDS: ACETAMINOPHEN 325 MG TAB PO PRN ×3 (03:20→12:43)
[2018-05-03] MEDS: oxyCODONE IR 5 MG TAB PO PRN ×2 (03:21→10:11)
--- NOTE | 2018-05-03 08:11 | SOAPPROG ---
SOAP Progress Note Assessment/Plan: Assessment/Plan: 1. Post-ERCP pancreatitis. Now, doing much better, with very little abdominal pain and nausea, and lipase down to 1K. - light breakfast; if tolerates, advance to regular - if tolerates the above, o.k. from our standpoint to d/c home late this afternoon (with oncology f/u). 2. LFTs about the same as yesterday. However, can take time to improve ( especially with some cbd edema from post-ERCP pancreatitis). In addition, with interval growth of his large intrahepatic lesion, much of this can be intrinsic in nature. - recommend periodic LFTs as an outpt., to follow trend (as per oncology). Thanks! 05/03/18 08:11 Subjective: cc: biliary obstruction, pancreatitis Pain now just "10/03." Nausea improved. No rigors, chills, sweats. Objective: Vital Signs Temp Pulse Resp BP Pulse Ox 36.6 C 82 18 118/79 91 L 05/03/18 03:07 05/03/18 03:07 05/03/18 03:07 05/03/18 03:07 05/03/18 03:07 Laboratory Results 05/01/18 04:24 05/02/18 04:10 05/02/18 05/03/18 05/04/18 05:59 05:59 05:59 Intake Total 3608 3663 Output Total 800 2250 Balance 2808 1413 PT 12.8 SEC (12.0-15.0) 04/29/18 20:30 INR 0.94 (0.83-1.16) 04/29/18 20:30 Lipase about 1000. TB 4. Physical Exam - Physical Exam General Appearance: WD/WN, alert, no apparent distress EENT: PERRL/EOMI, normal ENT inspection, pharynx normal, TMs normal Neck: non-tender, full range of motion, supple, normal inspection Respiratory: chest non-tender, lungs clear, normal breath sounds Cardiac/Chest: normal peripheral pulses, regular rate, rhythm Peripheral Pulses: 2+: carotid (R), carotid (L), femoral (R), femoral (L), dorsalis-pedis (R), dorsalis-pedis (L) Abdomen: normal bowel sounds, non-tender, soft Male Genitalia: deferred Rectal: deferred Back: Normal inspection Skin: normal color, warm/dry Lymphatic: no adenopathy Extremities: normal range of motion, non-tender, normal inspection, normal capillary refill Neuro/Psych: no motor/sensory deficits, alert, normal mood/affect, oriented x 3 ICD10 Worksheet Patient Problems: Problems Problem Status Onset Cholangiocarcinoma Acute Common bile duct obstruction Acute
[2018-05-03] MEDS ORDERED: SIMETHICONE 80 MG TAB CHEW PO PRN (10:15)
[2018-05-03 11:53] VITALS: BP 122/70
--- NOTE | 2018-05-03 14:34 | ASMTCMCOM ---
CM Note CM Note Notes: Patient seen this am. Currently uncomfortable with abdominal distention after breakfast. Clinically looked like pancreatitis resolving . Does not wish to discuss palliative care or HHC needs at this time. He is hoping to discharge to home later today if he is able to tolerate liquids. I have asked that he reach out to me then and we can determine how he may best be helped through referrals for services. Plan: Likely to discharge home if able to tolerate liquids. Date Signed: 05/03/2018 02:33 PM Electronically Signed By:Shasta Lorenzo RN
--- NOTE | 2018-05-03 15:38 | ASMTLACE ---
LACE Length of stay for Answers: 2 days current admission Comorbidities - select Answers: Any tumor (including all that apply lymphoma or leukemia) # of Emergency department Answers: 3-4 visits in the last 6 months Score: 7 Date Signed: 05/03/2018 03:37 PM Electronically Signed By:Shasta Lorenzo RN
--- NOTE | 2018-05-03 15:38 | PDDCSUM ---
Discharge Summary Discharge Summary: Admission Date: 04/30/2018 Discharge Date: 05/03/2018 Consults: GI, Oncology Procedure: ERCP with Biliary Stent Placement Hospital Course Problem List: 1. Acute biliary obstruction - 2/2 progression of malignancy; CT on admission revealed slight interval worsening of hepatic metastases, with increased now moderate to severe left intrahepatic biliary dilatation. - S/p Zosyn x1, continued while IP, abx d/c upon discharge due to lack of signs of infection - GI consulted, s/p ERCP with stent placement on 05/01 - Patient to f/u with Oncology to repeat LFTs within next week 2. Post ERCP Pancreatitis - Developed nausea, epigastric pain s/p ERCP - Lipase 7000, repeated this morning 1000 - S/p IVF, NPO, advanced diet which patient tolerated today 3. Metastatic cholangiocarcinoma - With evidence of disease in liver, pancreas, lymph nodes, and lungs. Followed by Dr. Sanchez. Time spent on discharge was >35 minutes with >50% of time spent on patient education and counseling
--- NOTE | 2018-05-03 15:40 | ASMTCMCOM ---
CM Note CM Note Notes: Patient discharged. Patient did not attempt to contact CM regarding needs, Likely to follow up with his PCP to explore end of life options.. Plan: Home without services. Date Signed: 05/03/2018 03:39 PM Electronically Signed By:Shasta Lorenzo RN
== END 2018-05-03 15:34 | disposition home or self-care (01) | DRG 435 ==
LOC: F1N 23:25 → OBSVTOIN 04-30 16:24
PROVIDERS: ADMIT Family Medicine; ATTEND Family Medicine
PROC: 0F798DZ Dilation of Common Bile Duct with Intraluminal Device, Via Natural or Artificial Opening Endoscopic (ICD-10-PCS; principal; 2018-05-01 10:00)
DX: C78.7 Secondary malignant neoplasm of liver and intrahepatic bile duct (principal); K85.80 Other acute pancreatitis without necrosis or infection; K91.89 Other postprocedural complications and disorders of digestive system; C25.9 Malignant neoplasm of pancreas, unspecified; C77.9 Secondary and unspecified malignant neoplasm of lymph node, unspecified; C78.00 Secondary malignant neoplasm of unspecified lung; E86.9 Volume depletion, unspecified
CPT/HCPCS: 96365; C2625; J1100; J1170; J1610; J2001; J2250; J2405; J2543; J2550; J2704; J3010; Q9961; Q9967

== ENCOUNTER 2018-06-03 21:17 | Emergency (ER) | payer OTHER ==
--- NOTE | 2018-06-03 21:31 | EDPHY ---
H & P Time Seen by Provider: 06/03/18 21:30 HPI/ROS: Chief complaint. Cancer patient, feels dehydrated HPI. 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 He is on hospice. He has been having vomiting and diarrhea for couple weeks. He has had decreased oral intake. Apparently hospice granted him a waiver to come to the emergency department for hydration after consultation with patient's oncologist. Patient tells me he has had low-grade fever for many months. He has no new or different system symptoms including chest discomfort or trouble breathing or change of abdominal pain. He would like only IV hydration and be discharged home for further care with hospice ROS 10 systems were reviewed and negative with the exception of the elements mentioned in the history of present illness Past Medical/Surgical History: Stage IV pancreatic cancer with mets to liver lungs. Cholangiocarcinoma Social History: , nonsmoker, no alcohol Smoking Status: Never smoked Physical Exam: General Appearance: Alert well-developed male mild distress vital signs significant for heart rate 112 Eyes: Pupils equal and round no pallor or injection. ENT, mucous membranes are dry Respiratory: There are no retractions, lungs are clear to auscultation. Cardiovascular: Regular rate and rhythm. Gastrointestinal: Abdomen is soft but distended. Mildly tender Neurological: Awake and alert, sensory and motor exams grossly normal. Skin: Warm and dry, no rashes. Musculoskeletal: Neck is supple nontender. Extremities symmetrical, full range of motion. Psychiatric: Patient is oriented X 3, there is no agitation. Constitutional: Initial Vital Signs Temperature (C) 36.5 C 06/03/18 21:19 Heart Rate 112 H 06/03/18 21:19 Respiratory Rate 20 06/03/18 21:19 Blood Pressure 109/79 06/03/18 21:19 O2 Sat (%) 89 L 06/03/18 21:19 O2 Delivery Mode Room Air Allergies/Adverse Reactions: No Known Allergies Allergy (Verified 04/29/18 19:52) Home Medications: Medication Instructions Recorded Ibuprofen [Motrin (*)] 400 mg PO Q8H PRN 04/07/18 oxyCODONE IR [Oxycodone Ir (*)] 5 mg PO Q4HRS PRN #15 tab 05/03/18 Medical Decision Making Procedures: IV normal saline with initial target of 2 L ED Course/Re-evaluation: Re-evaluation 11:05 p.m.. Patient is stable. 2nd L is going in Differential Diagnosis: No significant electrolyte abnormalities - Data Points Laboratory Results: Laboratory Results 06/03/18 21:40 06/03/18 21:40 Sodium 132 mEq/L L mEq/L (135-145) Potassium 4.2 mEq/L mEq/L (3.3-5.0) Chloride 92 mEq/L L mEq/L (97-110) Carbon Dioxide 31 mEq/l mEq/l (22-31) Anion Gap 9 mEq/L mEq/L (6-14) BUN 29 mg/dL H mg/dL (7-23) Creatinine 0.8 mg/dL mg/dL (0.7-1.3) Estimated GFR > 60 Glucose 119 mg/dL H mg/dL (70-100) Calcium 9.1 mg/dL mg/dL (8.5-10.4) Medications Given: Discontinued Medications Al Hydroxide/Mg Hydroxide (Maalox Susp) 30 ml PO EDNOW ONE Stop: 06/03/18 22:36 Last Admin: 06/03/18 22:48 Dose: 30 ml Sodium Chloride (Ns) 1,000 mls @ 0 mls/hr IV EDNOW ONE; Wide Open PRN Reason: Protocol Stop: 06/03/18 21:41 Last Admin: 06/03/18 21:49 Dose: 1,000 mls Sodium Chloride (Ns) 1,000 mls @ 0 mls/hr IV EDNOW ONE; Wide Open PRN Reason: Protocol Stop: 06/03/18 21:41 Last Admin: 06/03/18 22:11 Dose: 1,000 mls Lidocaine (Lidocaine 2% Viscous) 5 ml PO EDNOW ONE Stop: 06/03/18 22:36 Last Admin: 06/03/18 22:47 Dose: 5 ml Promethazine HCl (Phenergan) 25 mg IVP EDNOW ONE Stop: 06/03/18 22:48 Last Admin: 06/03/18 22:47 Dose: 25 mg Departure - Departure Disposition: Home, Routine, Self-Care Clinical Impression: Dehydration Condition: Fair Instructions: Dehydration (ED) Additional Instructions: Frequent, small sips fluids. Return for worsening symptoms. Re-evaluation in 1-2 days for concerns for dehydration Referrals: Clarke Du MD [Primary Care Provider] - As per Instructions
[2018-06-03] MEDS: NS 1,000 ML IV ONE ×2 (21:49→22:11)
[2018-06-03] MEDS ORDERED: PROMETHAZINE HCL 25 MG/ML INJ ONE (22:44)
[2018-06-03] MEDS: PROMETHAZINE HCL 25 MG/ML INJ IVP ONE (22:47)
[2018-06-03] MEDS: LIDOCAINE 2% VISCOUS 15 ML UDCUP PO ONE (22:47)
[2018-06-03] MEDS: MAG HYDROX/AL HYDROX/SIMETH 30 ML UDCUP PO ONE (22:48)
[2018-06-04] MEDS ORDERED: MAG HYDROX/AL HYDROX/SIMETH 30 ML UDCUP ONE (00:25)
[2018-06-04] MEDS: MAG HYDROX/AL HYDROX/SIMETH 30 ML UDCUP PO ONE (00:27)
[2018-06-04] MEDS: LIDOCAINE 2% VISCOUS 15 ML UDCUP PO ONE (00:28)
[2018-06-04 00:47] VITALS: BP 133/74
== END 2018-06-04 00:47 | disposition home or self-care (01) ==
DX: E86.0 Dehydration (principal); Z85.07 Personal history of malignant neoplasm of pancreas; C78.7 Secondary malignant neoplasm of liver and intrahepatic bile duct; C78.00 Secondary malignant neoplasm of unspecified lung
CPT/HCPCS: 96374; J2550

== ENCOUNTER 2018-06-05 02:31 | Emergency (ER) | payer OTHER ==
[2018-06-05] MEDS ORDERED: NS 1,000 ML IV ONE ×2 (04:12→07:16)
--- NOTE | 2018-06-05 04:16 | EDPHY ---
H & P Stated Complaint: DEHYDRATION Time Seen by Provider: 06/05/18 04:14 HPI/ROS: HPI CHIEF COMPLAINT: "I want IV fluids" "Enrolled in Hospice" HISTORY OF PRESENT ILLNESS: 58-year-old male, stage IV pancreatic cancer, cholangiocarcinoma, with a recent ER visit at requesting IV fluids. He presents emergency room late tonight requesting IV fluids. He states all that he would like is an IV fluid bolus. Does not want any medications. Nor does he want any blood draw. He is enrolled in hospice. Past Medical History: Stage IV pancreatic cancer, cholangiocarcinoma Past Surgical History: No recent surgery Social History: The enrolled in hospice. Family History: Noncontributory. ROS REVIEW OF SYSTEMS: 10 Systems were reviewed and negative with the exception of the elements mentioned in the history of present illness. Exam Constitutional nontoxic triage nursing summary reviewed, vital signs reviewed, awake/alert. Eyes normal conjunctivae and sclera, EOMI, PERRLA. HENT normal inspection, atraumatic, moist mucus membranes, no epistaxis, neck supple/ no meningismus, no raccoon eyes. Respiratory clear to auscultation bilaterally, normal breath sounds, no respiratory distress, no wheezing. Cardiovascular rate normal, regular rhythm, no murmur, no edema, distal pulses normal. Gastrointestinal distended abdomen, fluid wave present, no rebound, no guarding, normal bowel sounds, no pulsatile mass. Genitourinary no CVA tenderness. Musculoskeletal no midline vertebral tenderness, full range of motion, no calf swelling, no tenderness of extremities, no meningismus, good pulses, neurovascularly intact. Skin pink, warm, & dry, no rash, skin atraumatic. Neurologic awake, alert and oriented x 3, AAOx3, moves all 4 extremities equally, motor intact, sensory intact, CN II-XII intact, normal cerebellar, normal vision, normal speech. Psychiatric normal mood/affect. Heme/Lymph/Immune no lymphadenopathy. Differential Diagnosis: Includes but is not limited to in a particular order: Stage IV pancreatic cancer, cholangiocarcinoma, tense ascites, dehydration, requesting IV fluids for dehydration enrolled in hospice. Medical Decision Making: Plan for this patient does not want any medications nor does he want blood draw. He is requesting IV fluids. Will provide him 1 L normal saline. Re-evaluation: 0714: Patient re-evaluated this time. Patient is enrolled in hospice. He is due to go to hospice today. He is requesting a 2nd L fluid. He has gotten 1 L fluid. He understands that most this fluid most likely 3rd space into his intra -abdominal cavity however he states he is fine with this would like a 2nd L he is declining any imaging or blood work. He states after gets 2nd L would like to go home. Source: Patient, Old records - Personal History Current Tetanus/Diphtheria Vaccine: Yes Current Tetanus Diphtheria and Acellular Pertussis (TDAP): Yes - Medical/Surgical History Hx Asthma: No Hx Chronic Respiratory Disease: No Hx Diabetes: No Hx Cardiac Disease: No Hx Renal Disease: No Hx Cirrhosis: No Hx Alcoholism: No Hx HIV/AIDS: No Hx Splenectomy or Spleen Trauma: No Other PMH: LIVER BIOPSY 2018, STAGE 4 PANCREATIC CA, METS TO LIVER, LUNGS, LYMPHNODES- CHOLANGIOCARCINOMA - Social History Smoking Status: Never smoked Constitutional: Initial Vital Signs Temperature (C) 37.2 C 06/05/18 02:34 Heart Rate 114 H 06/05/18 02:34 Respiratory Rate 16 06/05/18 02:34 Blood Pressure 98/73 L 06/05/18 02:34 O2 Sat (%) 90 L 06/05/18 02:34 O2 Delivery Mode Room Air Allergies/Adverse Reactions: No Known Allergies Allergy (Verified 06/05/18 02:36) Home Medications: Medication Instructions Recorded Ibuprofen [Motrin (*)] 400 mg PO Q8H PRN 04/07/18 Guaifenesin Dm Syrup 06/05/18 Zofran Odt 06/05/18 Medical Decision Making - Data Points Medications Given: Discontinued Medications Sodium Chloride (Ns) 1,000 mls @ 0 mls/hr IV ONCE ONE PRN Reason: Wide Open Stop: 06/05/18 04:13 Last Admin: 06/05/18 04:24 Dose: 1,000 mls Departure - Departure Disposition: Home, Routine, Self-Care Clinical Impression: Dehydration Condition: Good Instructions: Dehydration (ED) Additional Instructions: 1. Return to the emergency room if you have any worsening symptoms questions or concerns. Referrals: Clarke Du MD [Primary Care Provider] - As per Instructions
[2018-06-05 08:18] VITALS: BP 105/65
== END 2018-06-05 08:24 | disposition home or self-care (01) ==
DX: E86.0 Dehydration (principal); C25.9 Malignant neoplasm of pancreas, unspecified; C22.1 Intrahepatic bile duct carcinoma

== ENCOUNTER → 2018-06-08 | Outpatient (CLI) | payer OTHER ==
[~2018-06-08] MED LIST: ALBUMIN 25% 100 ML SOLN IV ONE; HYDROmorphONE/DILAUDID 2 MG TAB PO ONE
== END ==
LOC: FIMAGING 13:24
PROVIDERS: ATTEND Family Medicine
PROC: 0W9G3ZZ Drainage of Peritoneal Cavity, Percutaneous Approach (ICD-10-PCS; principal; 2018-06-08)
DX: C25.9 Malignant neoplasm of pancreas, unspecified (principal)
CPT/HCPCS: P9047